=== PATIENT | male | born 1990 | race Two or more races ===

== ENCOUNTER 2019-11-16 18:18 | Emergency (ER) | payer MEDICAID ==
[~2019-11-16] VITALS: Ht 160 cm; Wt 62.0 kg
[2019-11-16] MEDS ORDERED: FAMOTIDINE 20MG TABLET PO ONE (19:00)
[2019-11-16] MEDS ORDERED: PREDNISONE 20MG TABLET PO ONE (19:00)
[2019-11-16 21:39] VITALS: BP 128/78
== END 2019-11-16 21:42 | disposition home or self-care (01) ==
LOC: EDBD → ER 18:18
DX: T78.1XXA Other adverse food reactions, not elsewhere classified, initial encounter (principal); Z90.49 Acquired absence of other specified parts of digestive tract; X58.XXXA Exposure to other specified factors, initial encounter
CPT/HCPCS: 99283; J7512

== ENCOUNTER 2019-11-24 11:43 | Emergency (ER) | payer MEDICAID ==
[~2019-11-24] VITALS: Ht 170.2 cm; Wt 63.5 kg
[2019-11-24 12:44] VITALS: BP 129/68
== END 2019-11-24 12:45 | disposition home or self-care (01) ==
LOC: ER 12:27
DX: T16.1XXA Foreign body in right ear, initial encounter (principal); H66.91 Otitis media, unspecified, right ear; X58.XXXA Exposure to other specified factors, initial encounter; Y93.89 Activity, other specified; Y92.89 Other specified places as the place of occurrence of the external cause; Y99.8 Other external cause status
CPT/HCPCS: 99282; 99283